=== PATIENT | female | born 1980 | race Caucasian/White ===

== ENCOUNTER → 2016-12-03 | Outpatient (CLI) | payer MEDICARE, MEDICAID ==
[~2016-12-03] MED LIST: ABILIFY20 MG PO; AMITRIPTYLINE150 MG PO; ATACAND4 MG PO; BUSPAR DPS15 MG PO; CLONAZEPAM1 MG PO; EFFEXOR XR150 MG PO; GABAPENTIN300 MG PO; HALOPERIDOL10 MG PO; HALOPERIDOL5 MG PO; IMITREX DPS100 MG PO; INDERAL-DPS10 MG PO; MAG-OX400 MG PO; MINIPRESS DPS2 MG PO; NALTREXONE HCL50 MG PO; NAPROXEN500 MG PO; PERCOCET 10 DPS1 TAB PO; QUDEXY XR50 MG PO; SOMA350 MG PO; SURFAK240 MG PO; TEMAZEPAM30 MG PO; TOPAMAX25 MG PO; TRAZODONE HCL300 MG PO; TYLENOL325 MG PO; VISTARIL-DPS50 MG PO; [UNRECOGNIZED DRUG - OTHER] PO
== END | disposition home or self-care (01) ==
LOC: RAD.S 08:50
DX: M25.561 Pain in right knee (principal)

== ENCOUNTER 2017-04-10 12:20 | Emergency (ER) | payer MEDICARE, MEDICAID ==
--- NOTE | 2017-04-11 11:04 | NUR ---
SAD person referral. Attemped to contact pt. No answer, unable to leave a voice mail message as voice mail is full.
--- NOTE | 2017-04-12 12:48 | NUR ---
Spoke with pt. Pt states she is doing better and states she is feeling better. Pt denies current thoughts of self harm and denies a plan. Pt states she is on the mental health board commitment. Pt states she goes to [place] for her therapy appt. Pt states she has transportation to her appts. Pt denies any further needs or concerns at this time.
--- NOTE | 2017-04-14 13:12 | ER ---
ADMIT: 04/10/2017 RM/LOC: ER [facility] MR#: [id number] [id number] DAVID WILLIAM Tori [address] [place] [address] [place] [address] Emergency Room Report SEX: F AGE: 36 : 1980 DATE: 04/10/2017 ADDENDUM: HISTORY OF PRESENT ILLNESS: This patient comes to the ER because she has had a sore throat for the last 2 days, and she has lost her voice. She is concerned she might have strep throat. PHYSICAL EXAMINATION: THROAT: She has cobblestone appearance on the posterior pharynx. LUNGS: Clear. ABDOMEN: Soft. NECK: No cervical lymphadenopathy. LABORATORY DATA: Strep screen is negative. DIAGNOSIS: Upper respiratory infection. We will have her follow up with her primary as needed. Give Tylenol or Motrin. Please see my T-sheet. FELI Garcia / Jonathan Bright MD / modl JOB #: [id number] CC: Jonathan Bright MD, Attending Physician Hugo Medrano MD, Family Physician
== END 2017-04-10 14:05 | disposition home or self-care (01) ==
LOC: ER 12:20
DX: J06.9 Acute upper respiratory infection, unspecified (principal); Z79.899 Other long term (current) drug therapy; Z88.8 Allergy status to other drugs, medicaments and biological substances